=== PATIENT | male | born 1970 | race Caucasian/White ===

== ENCOUNTER → 2023-11-14 06:22 | Outpatient (REF) | payer OTHER, SELFPAY | LOC: HWRAD 06:22 | PROVIDERS: ATTENDING PHYSICIAN Otolaryngology; FAMILY PHYSICIAN Internal Medicine | DX: S05.50XA Penetrating wound with foreign body of unspecified eyeball, initial encounter (principal) | CPT/HCPCS: 70030 ==

== ENCOUNTER → 2023-12-17 07:23 | Outpatient (REF) | payer OTHER, SELFPAY | LOC: MRI 3T 07:23 | PROVIDERS: ATTENDING PHYSICIAN Otolaryngology; FAMILY PHYSICIAN Internal Medicine | DX: H93.12 Tinnitus, left ear (principal) | CPT/HCPCS: 70553; A9575 ==